=== PATIENT | male | born 2000 | race African-American/Black ===

== ENCOUNTER 2023-04-18 16:46 | Emergency (ER) ==
[~2023-04-18] VITALS: Ht 175.3 cm; Wt 105.4 kg
[2023-04-18] MEDS: LIDOCAINE 2% MDV 20ML VIAL SC ONE (18:45)
[2023-04-18] MEDS: BOOSTRIX VACCINE (TETANUS/DIPHTH/ACEL. PERTUSSIS) 0.5ML SYR IM ONE (18:49)
== END 2023-04-18 19:15 | disposition home or self-care (01) ==
LOC: M ED 16:46
DX: S61.012A Laceration without foreign body of left thumb without damage to nail, initial encounter (principal); W26.0XXA Contact with knife, initial encounter; F17.200 Nicotine dependence, unspecified, uncomplicated; F10.10 Alcohol abuse, uncomplicated; Y92.9 Unspecified place or not applicable; Y93.9 Activity, unspecified; Y99.0 Civilian activity done for income or pay; Z23 Encounter for immunization

== ENCOUNTER 2023-05-01 13:39 | Emergency (ER) | payer OTHER ==
[~2023-05-01] VITALS: Ht 175.3 cm; Wt 104.2 kg
[2023-05-01 13:40] VITALS: BP 142/75; TEMP 97.2; O2SAT 100
== END 2023-05-01 14:17 | disposition home or self-care (01) ==
LOC: M ED 13:39
DX: Z48.02 Encounter for removal of sutures (principal)